=== PATIENT | female | born 1950 | race Asian ===

== ENCOUNTER 2017-01-24 09:28 | Outpatient (CLI) | payer OTHER | END 2017-01-24 11:00 | disposition home or self-care (01) | LOC: MAMMO 09:28 | DX: Z12.31 Encounter for screening mammogram for malignant neoplasm of breast (principal) | CPT/HCPCS: G0202-TC ==

== ENCOUNTER 2018-03-06 14:42 | Outpatient (CLI) | payer OTHER | END 2018-03-06 23:25 | disposition home or self-care (01) | LOC: RAD 14:42 | DX: R22.2 Localized swelling, mass and lump, trunk (principal) ==

== ENCOUNTER 2018-05-15 10:40 | Outpatient (CLI) | payer OTHER | END 2018-05-15 19:33 | disposition home or self-care (01) | LOC: RAD 10:40 | DX: M25.562 Pain in left knee (principal); M25.561 Pain in right knee ==

== ENCOUNTER 2018-07-25 10:34 | Outpatient (CLI) | payer OTHER | END 2018-07-25 19:00 | disposition home or self-care (01) | LOC: MAMMO 10:34 | DX: Z13.820 Encounter for screening for osteoporosis (principal); Z12.31 Encounter for screening mammogram for malignant neoplasm of breast; Z78.0 Asymptomatic menopausal state ==

== ENCOUNTER 2018-08-06 12:57 | Outpatient (CLI) | payer OTHER | END 2018-08-06 19:23 | disposition home or self-care (01) | LOC: MAMMO 12:57 | DX: R92.8 Other abnormal and inconclusive findings on diagnostic imaging of breast (principal) ==

== ENCOUNTER 2018-09-02 16:05 | Outpatient (CLI) | payer OTHER | END 2018-09-02 23:56 | disposition home or self-care (01) | LOC: LAB 16:05 | DX: M25.571 Pain in right ankle and joints of right foot (principal) | CPT/HCPCS: 84550 ==

== ENCOUNTER 2018-11-07 08:27 | Outpatient (CLI) | payer OTHER, MEDICARE | END 2018-11-07 23:17 | disposition home or self-care (01) | LOC: LABW 08:27 | PROVIDERS: Nurse Practitioner Gerontology | DX: E78.49 Other hyperlipidemia (principal); I15.8 Other secondary hypertension; Z79.899 Other long term (current) drug therapy | CPT/HCPCS: 36415; 80061 ==

== ENCOUNTER 2019-04-08 12:09 | Outpatient (CLI) | payer OTHER, MEDICARE ==
[2019-04-08 12:57] LABS: PLATELET COUNT 256 K/uL (152-353)
[2019-04-08 13:11] LABS: POTASSIUM 3.8 mmol/L (3.6-5.2)
== END 2019-04-08 23:01 | disposition home or self-care (01) ==
LOC: LABW 12:09
PROVIDERS: Podiatrist
DX: Z01.810 Encounter for preprocedural cardiovascular examination (principal); Z01.811 Encounter for preprocedural respiratory examination; Z01.812 Encounter for preprocedural laboratory examination
CPT/HCPCS: 36415; 80053; 85027; 93005

== ENCOUNTER 2019-06-02 10:18 | Outpatient (CLI) | payer OTHER, MEDICARE | END 2019-06-02 20:20 | disposition home or self-care (01) | LOC: LABW 10:18 | DX: Z09 Encounter for follow-up examination after completed treatment for conditions other than malignant neoplasm (principal); I10 Essential (primary) hypertension; Z79.899 Other long term (current) drug therapy | CPT/HCPCS: 36415; 83036; 83735; 84443 ==

== ENCOUNTER 2019-11-05 09:53 | Outpatient (CLI) | payer OTHER, MEDICARE | END 2019-11-05 20:09 | disposition home or self-care (01) | LOC: RAD 09:53 | DX: M05.79 Rheumatoid arthritis with rheumatoid factor of multiple sites without organ or systems involvement (principal); M19.041 Primary osteoarthritis, right hand; M19.042 Primary osteoarthritis, left hand ==

== ENCOUNTER 2020-04-13 12:16 | Outpatient (CLI) | payer OTHER, MEDICARE ==
[2020-04-13 13:06] LABS: PLATELET COUNT 355 K/uL (152-353)
[2020-04-13 13:13] LABS: POTASSIUM 3.8 mmol/L (3.6-5.2)
== END 2020-04-13 22:25 | disposition home or self-care (01) ==
LOC: LAB 12:16
PROVIDERS: Internal Medicine
DX: Z00.00 Encounter for general adult medical examination without abnormal findings (principal); I10 Essential (primary) hypertension; Z79.899 Other long term (current) drug therapy; Z13.820 Encounter for screening for osteoporosis; E55.9 Vitamin D deficiency, unspecified
CPT/HCPCS: 80053; 80061; 81000; 82306; 84439; 84443; 85027

== ENCOUNTER 2020-04-14 15:26 | Outpatient (CLI) | payer OTHER, MEDICARE | END 2020-04-14 22:20 | disposition home or self-care (01) | LOC: LAB 15:26 | DX: D64.9 Anemia, unspecified (principal); E53.8 Deficiency of other specified B group vitamins | CPT/HCPCS: 82607; 82728; 82746; 83540; 83550 ==

== ENCOUNTER 2020-04-29 09:34 | Outpatient (CLI) | payer OTHER, MEDICARE | END 2020-04-29 23:56 | disposition home or self-care (01) | LOC: MAMMO 09:34 | DX: Z12.31 Encounter for screening mammogram for malignant neoplasm of breast (principal) ==

== ENCOUNTER 2020-06-29 10:19 | Day surgery (SDC) | payer OTHER, MEDICARE ==
[2020-06-20 13:40] LABS: POTASSIUM 3.6 mmol/L (3.6-5.2)
[2020-06-20 13:41] LABS: PLATELET COUNT 326 K/uL (152-353)
== END 2020-06-29 13:12 | disposition home or self-care (01) ==
LOC: OR 10:19
PROVIDERS: ATTEND Internal Medicine Gastroenterology
PROC: 0DJD8ZZ Inspection of Lower Intestinal Tract, Via Natural or Artificial Opening Endoscopic (ICD-10-PCS; principal; 2020-06-29)
DX: K57.30 Diverticulosis of large intestine without perforation or abscess without bleeding (principal); K63.89 Other specified diseases of intestine; K64.8 Other hemorrhoids; D50.8 Other iron deficiency anemias; Z86.010 Personal history of colon polyps
CPT/HCPCS: 80053; 85027; J2704

== ENCOUNTER 2020-08-10 11:21 | Day surgery (SDC) | payer OTHER, MEDICARE ==
[2020-08-04 12:39] LABS: PLATELET COUNT 340 K/uL (152-353)
[2020-08-04 12:48] LABS: POTASSIUM 3.6 mmol/L (3.6-5.2)
[~2020-08-10] VITALS: Ht 30.5 cm; Wt 0.5 kg
== END 2020-08-10 12:02 | disposition home or self-care (01) ==
LOC: OR 11:21
PROVIDERS: ATTEND Internal Medicine Gastroenterology
PROC: 0DB88ZZ Excision of Small Intestine, Via Natural or Artificial Opening Endoscopic (ICD-10-PCS; principal; 2020-08-10)
PROC: 0DB68ZZ Excision of Stomach, Via Natural or Artificial Opening Endoscopic (ICD-10-PCS; 2020-08-10)
DX: K29.50 Unspecified chronic gastritis without bleeding (principal); B96.81 Helicobacter pylori [H. pylori] as the cause of diseases classified elsewhere; K21.00 Gastro-esophageal reflux disease with esophagitis, without bleeding; K44.9 Diaphragmatic hernia without obstruction or gangrene; D50.8 Other iron deficiency anemias; Z20.828 Contact with and (suspected) exposure to other viral communicable diseases
CPT/HCPCS: 80053; 85027; 87635; J2704; U0003

== ENCOUNTER 2020-08-16 10:01 | Outpatient (CLI) | payer OTHER, MEDICARE | END 2020-08-16 21:04 | disposition home or self-care (01) | LOC: RAD 10:01 | PROVIDERS: ATTEND Nurse Practitioner Gerontology | DX: Z13.820 Encounter for screening for osteoporosis (principal); N95.8 Other specified menopausal and perimenopausal disorders ==

== ENCOUNTER 2021-05-11 08:50 | Outpatient (CLI) | payer OTHER, MEDICARE | END 2021-05-11 20:02 | disposition home or self-care (01) | LOC: MAMMO 08:50 | PROVIDERS: ATTEND Internal Medicine | DX: Z12.31 Encounter for screening mammogram for malignant neoplasm of breast (principal) ==

== ENCOUNTER 2021-08-03 12:23 | Outpatient (CLI) | payer OTHER, MEDICARE | END 2021-08-03 21:23 | disposition home or self-care (01) | LOC: RAD 12:23 | PROVIDERS: ATTEND Nurse Practitioner Gerontology | DX: M05.79 Rheumatoid arthritis with rheumatoid factor of multiple sites without organ or systems involvement (principal); M25.572 Pain in left ankle and joints of left foot ==

== ENCOUNTER 2022-02-15 11:07 | Outpatient (CLI) | payer OTHER, MEDICARE ==
[2022-02-15 11:21] LABS: PLATELET COUNT 358 K/uL (152-353)
[2022-02-15 11:55] LABS: POTASSIUM 3.8 mmol/L (3.6-5.2)
== END 2022-02-15 21:21 | disposition home or self-care (01) ==
LOC: LAB 11:07
PROVIDERS: ATTEND Internal Medicine
DX: I10 Essential (primary) hypertension (principal); M81.0 Age-related osteoporosis without current pathological fracture
CPT/HCPCS: 80053; 80061; 81002; 84439; 84443; 85027

== ENCOUNTER → 2022-05-01 | Outpatient (CLI) | payer OTHER, MEDICARE | LOC: RESP 10:50 | PROVIDERS: ATTEND Specialist | DX: I10 Essential (primary) hypertension (principal) ==

== ENCOUNTER 2022-05-03 11:52 | Outpatient (CLI) | payer OTHER, MEDICARE | END 2022-05-03 21:59 | disposition home or self-care (01) | LOC: RAD 11:52 | PROVIDERS: ATTEND Internal Medicine Rheumatology | DX: M05.79 Rheumatoid arthritis with rheumatoid factor of multiple sites without organ or systems involvement (principal); M19.041 Primary osteoarthritis, right hand; M19.042 Primary osteoarthritis, left hand; M79.641 Pain in right hand; M79.642 Pain in left hand ==

== ENCOUNTER 2022-05-09 08:18 | Outpatient (CLI) | payer OTHER, MEDICARE ==
[~2022-05-09] VITALS: Ht 160 cm; Wt 53.1 kg
== END 2022-05-09 19:08 | disposition home or self-care (01) ==
LOC: NM 08:18
PROVIDERS: ATTEND Specialist
DX: Z01.810 Encounter for preprocedural cardiovascular examination (principal); I10 Essential (primary) hypertension
CPT/HCPCS: A9500; J2785

== ENCOUNTER 2022-06-04 09:39 | Outpatient (CLI) | payer OTHER, MEDICARE ==
[2022-06-04 10:10] LABS: PLATELET COUNT 319 K/uL (152-353)
[2022-06-04 13:41] LABS: POTASSIUM 3.3 mmol/L (3.6-5.2)
== END 2022-06-04 19:34 | disposition home or self-care (01) ==
LOC: LABW 09:39
PROVIDERS: ATTEND Specialist
DX: R93.1 Abnormal findings on diagnostic imaging of heart and coronary circulation (principal)
CPT/HCPCS: 36415; 80048; 85027

== ENCOUNTER 2022-12-05 08:46 | Outpatient (CLI) | payer OTHER, MEDICARE | END 2022-12-05 19:19 | disposition home or self-care (01) | LOC: MAMMO 08:46 | PROVIDERS: ATTEND Internal Medicine | DX: Z12.31 Encounter for screening mammogram for malignant neoplasm of breast (principal); M81.0 Age-related osteoporosis without current pathological fracture ==